=== PATIENT | female | born 1995 | race Caucasian/White ===

== ENCOUNTER 2016-08-21 03:29 | Emergency (ER) | payer OTHER ==
[~2016-08-21] VITALS: Ht 165.1 cm; Wt 53.4 kg
[2016-08-21 03:35] VITALS: TEMP 36.7; Ht 165.1 cm; Wt 53.4 kg
[2016-08-21] MEDS ORDERED: XYLOCAINE 1%/SOD BICARB 20 ML VIAL INFIL ONE (04:00)
[2016-08-21 04:14] LABS: BASO % 0.9 %; BASO ABS # 0.04 K/uL (0-0.2); COMPLETE YES; EOS % 3.5 %; IG% 0.7 %; LYMPH ABS # 1.51 K/uL (1.2-3.4); MEAN CELL VOLUME 88.7 fL (80-100); MEAN CORPUSCULAR HEMOGLOBIN 30.2 pg (25-34); MEAN CORPUSCULAR HGB CONC 34.1 g/dl (32-36); MEAN PLATELET VOLUME 10.6 fL (7.4-10.4); MONO % 6.8 %; NEUT % 55.1 %; PLATELET COUNT 184 K/uL (130-400); RED BLOOD COUNT 4.96 M/uL (4.2-5.4); WHITE BLOOD COUNT 4.58 K/uL (4.8-10.8)
[2016-08-21 04:17] LABS: PROTHROMBIN TIME (PATIENT) 11.1 SECONDS (9.0-12.0)
[2016-08-21 04:26] LABS: BUN/CREATININE RATIO 10.1 (10-20); CALCIUM 8.5 mg/dl (8.5-10.1); CREATININE 0.72 mg/dl (0.60-1.20); POTASSIUM 3.6 mmol/L (3.5-5.1)
[2016-08-21 04:29] LABS: ALB/GLOB RATIO 1.2 (0.9-2)
[2016-08-21] MEDS ORDERED: NORGTAB36 PO (04:50)
[2016-08-21] MEDS ORDERED: CETITAB27 PO (04:50)
[2016-08-21] MEDS ORDERED: MONT1TAB3 PO (04:50)
[2016-08-21] MEDS ORDERED: QVRINH80 PO (04:50)
[2016-08-21] MEDS ORDERED: SODIUM CHLORIDE 0.9% 500ML 500 ML IV STA (05:35)
[2016-08-21 06:24] VITALS: BP 107/73; PULSE 84; O2SAT 99
[2016-08-21] MEDS ORDERED: ONDANSETRON HOME PACK 4MG OD TAB PO ONE (06:30)
--- NOTE | 2016-08-21 06:51 | DIAGNOSTIC IMAGING REPORT ---
CT SCAN OF THE BRAIN WITHOUT IV CONTRAST CLINICAL HISTORY: Trauma. Fall. COMPARISON STUDY: No priors. TECHNIQUE: Unenhanced axial CT scan of the brain is performed from the vertex to the skull base. Automated dose control exposure was utilized. FINDINGS: Brain parenchyma: The brain parenchyma is normal in appearance. There is no hemorrhage, mass effect, or evidence of acute territorial ischemia by CT criteria. Schumacher-white matter is preserved. No extra-axial fluid collection is seen. Ventricles, sulci, cisterns: Normal in configuration. Intracranial vasculature: The visualized intracranial vasculature at the skull base is normal in appearance. Calvarium: There is no depressed calvarial fracture. Sinuses and mastoids: Trace mucosal thickening is seen in the right maxillary antrum. The remaining visualized paranasal sinuses are clear. The mastoid air cells are well pneumatized. Orbits: The bony orbits are grossly intact. IMPRESSION: No acute intracranial abnormality. Electronically signed by: Hayes David M.D. 08/21/2016 6:50 AM Dictated Date/Time: 08/21/2016 6:48 AM
--- NOTE | 2016-08-21 07:11 | DIAGNOSTIC IMAGING REPORT ---
CT SCAN OF THE FACIAL BONES WITHOUT IV CONTRAST CLINICAL HISTORY: Trauma. Fall. COMPARISON STUDY: CT of the brain performed concurrently on 08/21/2016. TECHNIQUE: High-resolution CT scan of the facial bones is performed. Images are reviewed in the axial, sagittal, and coronal planes. IV contrast was not administered for this examination. FINDINGS: The skeletal structures are well mineralized. There is no evidence of facial bone fracture. The bony orbits are intact and the orbital contents are within normal limits. The zygomatic arches, nasal bones, and pterygoid plates are preserved. The maxilla and mandible are intact. There are no layering blood products within the paranasal sinuses. There is mild mucosal thickening in the right maxillary antrum. The remaining paranasal sinuses are clear, as are the mastoid air cells. The visualized calvarium and upper cervical spine are maintained. Partially imaged brain parenchyma is within normal limits. IMPRESSION: There is no evidence of facial bone fracture. Electronically signed by: Hayes David M.D. 08/21/2016 7:10 AM Dictated Date/Time: 08/21/2016 7:07 AM
--- NOTE | 2016-08-21 07:18 | DIAGNOSTIC IMAGING REPORT ---
CT SCAN OF THE CERVICAL SPINE CLINICAL HISTORY: Trauma. Fall. COMPARISON STUDY: No priors. TECHNIQUE: CT scan of the cervical spine is performed from the skull base to the upper thoracic spine. Images are reviewed in the axial, sagittal, and coronal planes. IV contrast was not administered for this examination. CT DOSE: 764.02 mGy.cm FINDINGS: Skeletal structures: The skeletal structures are well mineralized. There is no evidence of fracture or subluxation involving the cervical spine. Vertebral body height and alignment are maintained. There is straightening of the cervical lordosis. The odontoid process and lateral masses are intact. The atlantoaxial articulation is preserved. The spinous processes appear intact. There is a mild and age indeterminant superior endplate compression deformity suspected involving T3. This is partially visualized on the sagittal series. Intervertebral discs: The disc spaces are well maintained. Central canal: Widely patent. Soft tissues: The prevertebral and paraspinous soft tissues are within normal limits. A 7 mm nodule is seen in the left thyroid lobe. Calvarium: The visualized calvarium at the skull base appears intact. Brain parenchyma: Partially visualized brain parenchyma the skull base is within normal limits. Sinuses and mastoids: The visualized paranasal sinuses are clear. The mastoid air cells are well pneumatized. Lung apices: Clear as visualized. IMPRESSION: 1. There is no evidence of fracture or subluxation involving the cervical spine. 2. Suspect a mild and age indeterminant compression deformity of T3. This is only partially imaged on the sagittal series. Correlate for point tenderness at this site. 3. There is a 7 mm nodule in the left thyroid lobe. Follow-up a nonemergent thyroid ultrasound is recommended for further assessment. Electronically signed by: Hayes David M.D. 08/21/2016 7:17 AM Dictated Date/Time: 08/21/2016 7:11 AM
--- NOTE | 2016-08-21 08:47 | DIAGNOSTIC IMAGING REPORT ---
SINGLE VIEW CHEST CLINICAL HISTORY: Trauma. Fall. FINDINGS: An AP, portable, upright chest radiograph is obtained. No prior studies are available for comparison at the time of dictation. The cardiomediastinal silhouette is unremarkable. The lungs and pleural spaces are clear. No pneumothorax is seen. The bony thorax is grossly intact. There is mild thoracolumbar scoliosis. IMPRESSION: No acute cardiopulmonary abnormality. Electronically signed by: Hayes David M.D. 08/21/2016 8:45 AM Dictated Date/Time: 08/21/2016 8:45 AM
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
== END 2016-08-21 06:30 | disposition home or self-care (01) ==
LOC: C.EDB 03:33
DX: S01.01XA Laceration without foreign body of scalp, initial encounter (principal); W19.XXXA Unspecified fall, initial encounter; Y92.89 Other specified places as the place of occurrence of the external cause